=== PATIENT | male | born 1965 | race Caucasian/White ===

== ENCOUNTER 2018-11-06 09:42 | Day surgery (SDC) | payer OTHER ==
[~2018-11-06] VITALS: Ht 162.6 cm; Wt 97.6 kg
[~2018-11-06 09:42] MED LIST: CHOL10002 PO; ONE DAILY COMP1 EACH PO; PRAV20 PO; PRED10 PO; Prinivil10 MG PO
--- NOTE | 2018-11-06 10:37 | NUR ---
11/06/18 Cristian Rodriguez History, Chart, Medications and Allergies reviewed before start of procedure.MONITOR INTACT WITH CONTINUOUS PULSE OXIMETRY AND INTERMITTENT BP.3-LEAD EKG REVIEWED WITH PHYSICIAN PRIOR TO START OF PROCEDURE.O2 VIA N/C INTACT THROUGHOUT SEDATION/PROCEDURE. Patient confirms NPO status and agrees with scheduled surgery.PATIENT DETERMINED TO BE ASA APPROPRIATE FOR PROPOFOL SEDATION PRIOR TO START OF PROCEDURE BY DR. VILLANUEVA.
--- NOTE | 2018-11-06 10:37 | NUR ---
Ambulatory in Day Surgery. Patient states colon prep results clear. History, Chart, Medications and Allergies reviewed before start of procedure. Lungs clear T/O to Auscultation. Patient confirms NPO status and agrees with scheduled surgery. Pre-Op teaching done. Pt verbalizes understanding. Patient States Post-Procedure ride home has been arranged.
--- NOTE | 2018-11-06 11:43 | NUR ---
Discharge instructions reviewed with patient. Patient verbalizes understanding. Copy given to patient to take home. Patient up to Ambulate independently. Gait steady. Discharged via wheelchair to private car for ride home.
== END 2018-11-06 23:13 | disposition home or self-care (01) ==
LOC: ORSCMMR 09:42 → ORD 10:30 → ORSCMMR 10:30
PROVIDERS: Internal Medicine Gastroenterology
PROC: 0DBM8ZX Excision of Descending Colon, Via Natural or Artificial Opening Endoscopic, Diagnostic (ICD-10-PCS; principal; 2018-11-06 10:30)
PROC: 0DBH8ZX Excision of Cecum, Via Natural or Artificial Opening Endoscopic, Diagnostic (ICD-10-PCS; principal; 2018-11-06 10:30)
PROC: 0DBN8ZX Excision of Sigmoid Colon, Via Natural or Artificial Opening Endoscopic, Diagnostic (ICD-10-PCS; principal; 2018-11-06 10:30)
PROC: 0DBK8ZX Excision of Ascending Colon, Via Natural or Artificial Opening Endoscopic, Diagnostic (ICD-10-PCS; principal; 2018-11-06 10:30)
DX: Z12.11 Encounter for screening for malignant neoplasm of colon (principal); Z86.010 Personal history of colon polyps; D12.2 Benign neoplasm of ascending colon; D12.0 Benign neoplasm of cecum; K63.5 Polyp of colon; Z87.891 Personal history of nicotine dependence; J44.9 Chronic obstructive pulmonary disease, unspecified; I10 Essential (primary) hypertension; E78.00 Pure hypercholesterolemia, unspecified; Z79.899 Other long term (current) drug therapy
CPT/HCPCS: 88305; J2250; J2704; J7120

== ENCOUNTER 2019-09-14 14:27 | Inpatient (IN) | payer OTHER ==
[~2019-09-14] VITALS: Ht 160 cm; Wt 100.7 kg
[2019-09-14 16:15] LABS: BASOPHILS ABSOLUTE AUTO 0.04 K/mm3 (0.00-0.23); BASOPHILS PERCENT AUTO 0 % (0-2); EOSINOPHILS ABSOLUTE AUTO 0.01 K/mm3 (0.00-0.68); EOSINOPHILS PERCENT AUTO 0 % (0-6); Hematocrit 43.6 % (37.0-53.0); IMMATURE GRAN ABSOLUTE AUTO 0.07 K/mm3 (0.00-0.10); IMMATURE GRAN PERCENT AUTO 1 % (0-1); LYMPHOCYTES ABSOLUTE AUTO 1.14 K/mm3 (0.84-5.20); LYMPHOCYTES PERCENT AUTO 9 % (21-46); MONOCYTES PERCENT AUTO 8 % (4-13); Mean Corpuscular HGB 32.3 pg (26.0-34.0); Mean Corpuscular HGB Conc 34.4 g/dL (31.5-36.5); Mean Corpuscular Volume 94 fL (80-100); NEUTROPHILS PERCENT AUTO 82 % (41-73); Platelet Count 245 K/mm3 (150-400); RDW Coefficient Variation 12.5 % (11.7-14.2); RDW Standard Deviation 42.9 fL (35.1-46.3); Red Blood Cell Count 4.65 M/mm3 (4.30-5.90); White Blood Cell Count 12.46 K/mm3 (4.00-11.30)
[2019-09-14 16:37] LABS: Alanine Aminotransfer (ALT/SGP 33 U/L (12-78); Alk Phos 76 U/L (50-136); Anion Gap 6 mmol/L (6-16); Aspartate Aminotrans (AST/SGOT 31 U/L (12-37); Bilirubin, Total 1.2 mg/dL (0.1-1.0); Blood Urea Nitrogen 18 mg/dL (8-24); Bun/Creatinine Ratio 16.7 (12.0-20.0); CO2, Blood 26 mmol/L (21-32); Chloride, Blood 103 mmol/L (98-108); Creatinine, Blood 1.08 mg/dL (0.60-1.20); Globulin, Blood 4.2 g/dL (2.2-4.0); Glomerular Filtration Rate >60 (60-); Glucose, Blood 113 mg/dL (70-99); Potassium, Blood 4.3 mmol/L (3.5-5.5); Sodium, Blood 135 mmol/L (136-145); Total Protein, Blood 8.2 g/dL (6.4-8.2)
--- NOTE | 2019-09-14 19:25 | NUR ---
"DAY SURGERY RN | TO OR DR. BOBBY SPOKE WITH PATIENT BEFORE THIS RN SAW PATIENT IN ER. BOTH DOCTORS AND SWAGING MACHINE OPERATOR HAVE SEEN PATIENT. REPORT TO MASOUD PEDERSEN. NO ISSUES."
--- NOTE | 2019-09-14 19:53 | NUR ---
09/14/191952 Meryl Garsia PT ON SCHEDULED ANTIBIOTICS
--- NOTE | 2019-09-14 22:12 | NUR ---
RECOVERY RECEIVED FROM OR S/P APPY. AWAKE AND RESTLESS. AGITATED MOVEMENTS IN BED. MOANS FREQUENTLY. FOLLOWS SOME SIMPLE COMMANDS AND ANSWERS SOME QUESTIONS APPROPRIATELY. RA SATS STABLE. RESPIRATIONS IRREGULAR, BUT UNLABORED. BP STABLE. MONITOR SHOWS SR, 90s. ABD DRSGS X 3. LEFT DRSG HAS SMALL AMOUNT OF SANGUINOUS DRAINAGE. MUSTAPHA DRAIN TO LEFT ABDOMEN WITH SANGUINOUS DRAINAGE.
--- NOTE | 2019-09-14 22:44 | NUR ---
RECOVERY REASSESSMENT PT IS LESS RESTLESS AND MORE ORIENTED TO WHAT IS GOING ON. FOLLOWS COMMANDS. DENIES C/0 PAIN AT THIS TIME. PACU SCORE IS 10. VSS. RECEIVING RN IS UNABLE TO TAKE REPORT AT THIS TIME AND WILL CALL FOR REPORT WHEN SHE CAN.
[2019-09-15 04:12] LABS: BASOPHILS ABSOLUTE AUTO 0.01 K/mm3 (0.00-0.23); BASOPHILS PERCENT AUTO 0 % (0-2); Hematocrit 39.6 % (37.0-53.0); Hemoglobin 13.5 g/dL (13.5-17.5); LYMPHOCYTES ABSOLUTE AUTO 0.44 K/mm3 (0.84-5.20); LYMPHOCYTES PERCENT AUTO 6 % (21-46); MONOCYTES ABSOLUTE AUTO 0.42 K/mm3 (0.16-1.47); MONOCYTES PERCENT AUTO 6 % (4-13); Mean Corpuscular HGB 32.8 pg (26.0-34.0); Mean Corpuscular HGB Conc 34.1 g/dL (31.5-36.5); Mean Corpuscular Volume 96 fL (80-100); Mean Platelet Volume 8.6 fL (9.1-12.4); Platelet Count 190 K/mm3 (150-400); RDW Coefficient Variation 12.6 % (11.7-14.2); RDW Standard Deviation 44.4 fL (35.1-46.3); Red Blood Cell Count 4.12 M/mm3 (4.30-5.90); White Blood Cell Count 7.12 K/mm3 (4.00-11.30)
[2019-09-15 04:13] LABS: EOSINOPHILS PERCENT AUTO 0 % (0-6); IMMATURE GRAN ABSOLUTE AUTO 0.02 K/mm3 (0.00-0.10); IMMATURE GRAN PERCENT AUTO 0 % (0-1); NEUTROPHILS ABSOLUTE AUTO 6.23 K/mm3 (1.96-9.15); NEUTROPHILS PERCENT AUTO 88 % (41-73)
[2019-09-15 04:43] LABS: Anion Gap 6 mmol/L (6-16); Blood Urea Nitrogen 15 mg/dL (8-24); Bun/Creatinine Ratio 15.4 (12.0-20.0); CO2, Blood 26 mmol/L (21-32); Calcium, Blood 8.4 mg/dL (8.5-10.1); Chloride, Blood 106 mmol/L (98-108); Creatinine, Blood 0.98 mg/dL (0.60-1.20); Glomerular Filtration Rate >60 (60-); Glucose, Blood 170 mg/dL (70-99); Potassium, Blood 4.2 mmol/L (3.5-5.5); Sodium, Blood 138 mmol/L (136-145)
--- NOTE | 2019-09-15 04:52 | NUR ---
PATEINT ARRIVED FROM THE ICU, POST OP RECOVERY @2345. HE IS AWAKE AND INTERACTING WITH STAFF. HE HAS NO COMPLAINTS OF PAIN. HE HAS 3 GAUZE COVERED INCISIONS THE ONE ON THE LT QUADRANT, ALSO HAS A MUSTAPHA DRAIN WITH SS FLUID. PATIENT HAD A DIFFICULT TIME WITH VOIDING, HE DID HOWEVER VOID AFTER 10 MINS. hE HAS BEEN ABLE TO GET REST THIS AM. HE DID ASK FOR A PAIN PILL AND RECIEVED ONE FOR PAIN THIS MORNING. HE IS NOW INDEPENDENT IN ROOM. HE DOES HAVE RED FLUID ON HIS LEFT GAUZE. NO ACUTE CHANGES.
--- NOTE | 2019-09-15 08:06 | NUR ---
DR BOBBY HERE TO SEE PT.
--- NOTE | 2019-09-15 14:55 | NUR ---
SHIFT SUMMARY PT TOLERATING DIET. PT REPORTS PASSING VERY SMALL AMT OF GAS. "FEEL LIKE I NEED A BM". CONT TO ENCOURAGE SHORT FREQUENT WALKS, PT REPORTS WILL WALK IN HALLWAYS. PT UP IND. WITH STEADY GAIT. PT WAS GIVEN PRUNE JUICE COCKTAIL EARLIER TODAY.
--- NOTE | 2019-09-15 14:58 | NUR ---
REPORT GIVEN TO José Manuel WHO IS TAKING OVER CARE AT THIS TIME.
[2019-09-16 04:11] LABS: BASOPHILS ABSOLUTE AUTO 0.03 K/mm3 (0.00-0.23); BASOPHILS PERCENT AUTO 0 % (0-2); EOSINOPHILS PERCENT AUTO 0 % (0-6); Hematocrit 39.6 % (37.0-53.0); Hemoglobin 13.7 g/dL (13.5-17.5); IMMATURE GRAN ABSOLUTE AUTO 0.02 K/mm3 (0.00-0.10); IMMATURE GRAN PERCENT AUTO 0 % (0-1); LYMPHOCYTES ABSOLUTE AUTO 1.14 K/mm3 (0.84-5.20); LYMPHOCYTES PERCENT AUTO 13 % (21-46); MONOCYTES PERCENT AUTO 7 % (4-13); Mean Corpuscular HGB 32.4 pg (26.0-34.0); Mean Corpuscular HGB Conc 34.6 g/dL (31.5-36.5); Mean Corpuscular Volume 94 fL (80-100); Mean Platelet Volume 9.3 fL (9.1-12.4); NEUTROPHILS ABSOLUTE AUTO 6.93 K/mm3 (1.96-9.15); NEUTROPHILS PERCENT AUTO 80 % (41-73); Platelet Count 213 K/mm3 (150-400); RDW Coefficient Variation 12.8 % (11.7-14.2); Red Blood Cell Count 4.23 M/mm3 (4.30-5.90); White Blood Cell Count 8.72 K/mm3 (4.00-11.30)
--- NOTE | 2019-09-16 04:31 | NUR ---
SHIFT SUMMARY POD#2 LAP APPI WITH MUSTAPHA PLACEMENT. AAOX4. DISCOMFORT AT TOLERABLE LEVEL T/O NIGHT. NO NAUSEA/EMESIS. ABD INCISION WITH STERI STRIPS + GAUZE C/D/I. MUSTAPHA SECURE WITH SCANT DRY SS DRAINAGE AROUND INSERTION SITE, LARGE AMOUNTS OF SS DRAINAGE FROM DRAIN NOTED THIS SHIFT WITH PT REPORTING EMPTYING OWN BULB X2 THIS SHIFT WITH UNKNOWN AMOUNTS, PT STRONGLY ENCOURAGED TO NOT EMPTY OWN MUSTAPHA + CALL NURSING STAFF WHEN BULB NEEDS TO BE EMPTIED. PT ACKNOWLEDGED. PT UP TO RESTROOM INDEPENDENTLY. REPORTING INCREASED LOWER ABD "BLOATING" SINCE YESTARDAY. DENIES FLATUS OR BM POST OP. BOWEL CARE CONTINUED THIS SHIFT. ENCOURAGE AMBULATION TODAY + SIPS CLEARS TOLERATED. NEW IV PLACED THIS SHIFT FOR IVF + ABX. PT CURRENTLY RESTING IN BED WITH EYES CLOSED, NADN, WITH CALL LIGHT IN REACH.
--- NOTE | 2019-09-16 08:33 | NUR ---
DR BOBBY HERE TO SEE PT, REPORTS PT TO BE C.L. DIET. IVF CHANGED HE STATED HE WILL DECREASE RATE TO 75/HR.
--- NOTE | 2019-09-16 14:16 | NUR ---
REPORT GIVEN TO Lolita WHO IS TAKING OVER CARE AT THIS TIME.
--- NOTE | 2019-09-16 16:05 | NUR ---
SHIFT SUMMARY PT A&OX4, VSS, POD2 LAP CISCO CONNER/GAUZE CDI, MUSTAPHA W/SEROUS DRAINAGE - NEW DRESSING APPLIED TODAY TO REPLACE SATURATED DRESSING LEAKING ONTO PATIENT'S GOWN. ABD DISTENDED, DENIES FLATUS, REPORTS 2 SMALL LIQUID BMS THIS SHIFT, DENIES N&V. AMBULATING INDEPENDENTLY IN ROOM TO BRP AND IN HALLWAYS T/O SHIFT. DENIES PAIN. WILL REPORT TO ONCOMING NOC RN.
--- NOTE | 2019-09-17 04:08 | NUR ---
SHIFT SUMMARY POD#3. AAOX4. DISCOMFORT AT TOLERABLE LEVEL T/O NIGHT. DENIES NAUSEA/EMESIS. ABD INCISION WITH STERI STRIPS/GAUZE C/D/I. MUSTAPHA SECURE WITH SCANT DRY DRAINAGE NOTED AROUND INSERTION SITE, NO CHANGE THIS SHIFT WITH MODERATE AMOUNT OF SS DRAINAGE FROM MUSTAPHA THIS SHIFT. INDEPENDENT IN HALLS. GOOD PO INTAKE + OUTPUT. MULTIPLE LOOSE STOOLS YESTARDAY + THIS NOC SHIFT. PT RESTED WELL T/O NIGHT. CURRENTLY RESTING WELL IN BED AT THIS TIME, NADN, WITH CALL LIGHT IN REACH.
[2019-09-17] MEDS ORDERED: AMOCLA875 PO (09:55)
--- NOTE | 2019-09-17 10:08 | NUR ---
DC'D HOME, DC INSTRUCTIONS GIVEN, VERBALIZED UNDERSTANDING.
== END 2019-09-17 10:17 | disposition home or self-care (01) | DRG 341 ==
LOC: ER 14:27 → SURS 22:06
PROVIDERS: Nurse Practitioner; ADMIT Surgery
PROC: 0DTJ4ZZ Resection of Appendix, Percutaneous Endoscopic Approach (ICD-10-PCS; 2019-09-14)
PROC: 0WQF4ZZ Repair Abdominal Wall, Percutaneous Endoscopic Approach (ICD-10-PCS; principal; 2019-09-14 23:30)
DX: K42.9 Umbilical hernia without obstruction or gangrene (principal); K35.33 Acute appendicitis with perforation, localized peritonitis, and gangrene, with abscess; I10 Essential (primary) hypertension; E78.5 Hyperlipidemia, unspecified; G47.33 Obstructive sleep apnea (adult) (pediatric); E66.9 Obesity, unspecified; Z68.39 Body mass index [BMI] 39.0-39.9, adult; Z87.891 Personal history of nicotine dependence
CPT/HCPCS: 36415; 74177; 80048; 80053; 83690; 85025; 88304; 93005; 93010; 96365-59; 96375; 99285-25; A9270-GY; J1100; J1170; J1650; J2250; J2370; J2405; J2543; J2704; J3010; J7030; J7120; Q9967

== ENCOUNTER 2021-05-26 09:39 | Day surgery (SDC) | payer OTHER ==
[~2021-05-26] VITALS: Ht 162.6 cm; Wt 105.3 kg
[~2021-05-26 09:39] MED LIST changes: +AMOCLA875 PO
--- NOTE | 2021-05-26 12:22 | NUR ---
05/26/21 1222 Jeanne Deluca PT BP TRENDING DOWN. DR. ENRIQUE MEDICATED PT AND OPENED FLUIDS. PT HEAD INVERTED DOWN. MONITORED S/S. PT ELECTED TO PROCEED WITH PROCEEDURE. DR. ENRIQUE OK WITH PROCEEDING.
== END 2021-05-26 14:45 | disposition home or self-care (01) ==
LOC: ORSCSDS 09:39
PROVIDERS: Orthopaedic Surgery
PROC: 0RNK4ZZ Release Left Shoulder Joint, Percutaneous Endoscopic Approach (ICD-10-PCS; principal; 2021-05-26 10:45)
PROC: 0LM24ZZ Reattachment of Left Shoulder Tendon, Percutaneous Endoscopic Approach (ICD-10-PCS; principal; 2021-05-26 10:45)
DX: M75.122 Complete rotator cuff tear or rupture of left shoulder, not specified as traumatic (principal); S46.002A Unspecified injury of muscle(s) and tendon(s) of the rotator cuff of left shoulder, initial encounter; M75.22 Bicipital tendinitis, left shoulder; M75.42 Impingement syndrome of left shoulder; I10 Essential (primary) hypertension; Z87.891 Personal history of nicotine dependence; G47.33 Obstructive sleep apnea (adult) (pediatric); Z79.899 Other long term (current) drug therapy; E66.01 Morbid (severe) obesity due to excess calories; Z68.39 Body mass index [BMI] 39.0-39.9, adult
CPT/HCPCS: C1713; J0171; J0690; J1100; J2250; J2370; J2405; J2704; J3010; J7120

== ENCOUNTER 2022-09-07 09:06 | Day surgery (SDC) | payer OTHER ==
[2022-09-07] VITALS (18 sets, daily range): BP systolic 76–148; BP diastolic 41–129
[~2022-09-07] VITALS: Ht 162.6 cm; Wt 96.6 kg
--- NOTE | 2022-09-07 10:08 | NUR ---
Ambulatory in Day SurgeryLungs clear T/O to Auscultation. Patient confirms NPO status and agrees with scheduled surgery. Pre-Op teaching done. Pt verbalizes understanding. Patient States Post-Procedure ride home has been arranged with neighbor "Tennille"
--- NOTE | 2022-09-07 10:09 | NUR ---
PT WARNED RN THAT HE DOES LIKE NEEDLES. DID VERY WELL W/ IV START BUT DID GET COLD/CLAMMY AND SLIGHTLY NAUSEATED DURING INTERVENTION. HEAD OF BED FLAT, COLD CLOTH TO FOREHEAD. S/S RESOLVED AFTER INTERVENTION COMPLETED.
--- NOTE | 2022-09-07 10:32 | NUR ---
09/07/22 1032 Amna Danielle HISTORY, CHART, MEDICATIONS AND ALLERGIES REVIEWED BEFORE START OF PROCEDURE. PATIENT CONFIRMS NPO STATUS AND AGREES WITH SCHEDULED PROCEDURE. 3-LEAD EKG REVIEWED WITH PHYSICIAN PRIOR TO START OF PROCEDURE. MONITOR INTACT WITH CONTINUOUS PULSE OXIMETRY,CAPNOGRAPHY, 3-LEAD EKG, INTERMITTENT BP. SUPPLEMENTAL O2 TO BE TITRATED THROUGHOUT PROCEDURE TO MAINTAIN O2 SATURATION ABOVE 90%. PATIENT DETERMINED TO BE ASA APPROPRIATE FOR PROPOFOL SEDATION PRIOR TO START OF PROCEDURE BY DR. VILLANUEVA. MALLAMPATI CLASS 2 AIRWAY: COMPLETE VISUALIZATION OF THE UVULA.
--- NOTE | 2022-09-07 11:22 | NUR ---
Discharge instructions reviewed with patient. Patient verbalizes understanding. Copy given to patient to take home. Patient States Post-Procedure ride home has been arranged. Discharged via wheelchair to private car for ride home.
== END 2022-09-07 22:48 | disposition home or self-care (01) ==
LOC: ORSCMMR 09:06 → ORD 10:00 → ORSCMMR 10:00
PROVIDERS: Internal Medicine Gastroenterology
PROC: 0DBL8ZX Excision of Transverse Colon, Via Natural or Artificial Opening Endoscopic, Diagnostic (ICD-10-PCS; principal; 2022-09-07 10:00)
PROC: 0DBN8ZX Excision of Sigmoid Colon, Via Natural or Artificial Opening Endoscopic, Diagnostic (ICD-10-PCS; principal; 2022-09-07 10:00)
DX: Z12.11 Encounter for screening for malignant neoplasm of colon (principal); Z86.010 Personal history of colon polyps; K63.5 Polyp of colon; D12.3 Benign neoplasm of transverse colon; J44.9 Chronic obstructive pulmonary disease, unspecified; E78.00 Pure hypercholesterolemia, unspecified; I10 Essential (primary) hypertension; E66.01 Morbid (severe) obesity due to excess calories; Z68.38 Body mass index [BMI] 38.0-38.9, adult; Z87.891 Personal history of nicotine dependence; Z79.899 Other long term (current) drug therapy
CPT/HCPCS: 88305; J2704; J7120

== ENCOUNTER 2024-06-06 11:10 | Day surgery (SDC) | payer OTHER ==
[~2024-06-06] VITALS: Ht 162 cm; Wt 86.8 kg
[2024-06-06] VITALS (15 sets, daily range): BP systolic 93–144; BP diastolic 61–87
[~2024-06-06 11:10] MED LIST changes: +PROBIOTIC1 EA14 PO; +SUPER B COMPLEX PO; +[UNRECOGNIZED DRUG - REMARK] PO
[2024-06-06] MEDS ORDERED: Acetaminophen 500 MG Tab PO SCH ×2 (11:15→16:00)
[2024-06-06] MEDS ORDERED: Lactated Ringer's 1,000 ML IV SCH ×2 (11:15→13:00)
[2024-06-06] MEDS ORDERED: Tranexamic Acid 1,000 MG in NS 100 ML IV SCH (11:15)
[2024-06-06] MEDS ORDERED: OxyCODONE HCL 10 MG TABCR PO SCH (11:15)
[2024-06-06] MEDS ORDERED: CeFAZolin Sodium 2,000 MG in NS 100 ML IV SCH ×2 (11:15→22:00)
[2024-06-06] MEDS ORDERED: Chlorhexidine Mouth Care 15 ML UDC MT SCH (11:15)
[2024-06-06] MEDS ORDERED: Ropivacaine 0.5% HCl/Pf 123.125 MG,EPINEPHrine HCL 0.25 MG,Ketorolac Tromethamine 15 MG... INFIL SCH (11:15)
--- NOTE | 2024-06-06 12:46 | NUR ---
History, Chart, Medications and Allergies reviewed before start of procedure. Patient up to Ambulate independently. Gait steady. Patient confirms NPO status and agrees with scheduled surgery. Pre-Op teaching done. Pt verbalizes understanding. Patient reports completing Chlorhexadine shower X2 prior to admission to hospital. Surgical site prepped with 2% Chlorhexidine cloth wipe. Patient States Post-Procedure ride home has been arranged.
[2024-06-06] MEDS ORDERED: HYDROmorphone HCl/Pf 1MG SYR IV PRN (13:00)
[2024-06-06] MEDS ORDERED: FLU VACC TS2024-25(6MOS UP)/PF 45 MCG/0.5 ML SYRINGE IM SCH (13:00)
[2024-06-06] MEDS ORDERED: Metoclopramide HCl 5MG / ML 2ML Vial IV PRN (13:00)
[2024-06-06] MEDS ORDERED: Magnesium Hydroxide Conc 10 ML UDC PO PRN (13:00)
[2024-06-06] MEDS ORDERED: Ondansetron HCl 2 MG / ML 2ML Vial IV PRN (13:00)
[2024-06-06] MEDS ORDERED: DiphenhydrAMINE HCL 25 MG Cap PO PRN (13:05)
[2024-06-06] MEDS ORDERED: OxyCODONE HCL 5 MG TAB PO PRN ×2 (13:05→13:10)
[2024-06-06] MEDS ORDERED: Promethazine HCl 25 MG Tab PO PRN (13:05)
[2024-06-06] MEDS ORDERED: Bisacodyl 10 MG Supp PR PRN (13:05)
[2024-06-06] MEDS ORDERED: Midazolam HCl 1MG / ML 2ML Vial ONE (13:24)
[2024-06-06] MEDS ORDERED: propofoL 60 ML IV ONE (13:25)
[2024-06-06] MEDS ORDERED: Phenylephrine HCl 100 MCG/ML-NS 10MLSYR (1MG/10ML) ONE ×2 (13:57→15:15)
[2024-06-06] MEDS ORDERED: ePHEDrine Sulfate 50 MG/ML 1ML Injection ONE (13:59)
[2024-06-06] MEDS ORDERED: propofoL 50 ML IV ONE (15:15)
--- NOTE | 2024-06-06 16:58 | NUR ---
PT ARRIVED TO UNIT S/P LTKA AA0X4, ROOM AIR, DENIES SOB. POLAR KYA IN PLACE, TYRONE WRAP CDI. TOLERATING DIET NOW, DENIES NAUSEA. UNABLE TO WIGGLE TOES, CAN MOVE LEGS. PLAN IS FOR PATIENT TO WORK WITH THERAPY TOMORROW AND DISCHARGE HOME. STRAIGHT CATH IN PACU AND ENCOURAGED TO DRINK PO FLLUIDS.
[2024-06-06] MEDS ORDERED: Ketorolac Tromethamine 15mg Vial IV SCH (18:00)
--- NOTE | 2024-06-06 18:35 | NUR ---
no acute changes since arrival to floor. pt continues to deny pain and is very excited for his new knee.
[2024-06-06] MEDS ORDERED: Lactobacil 2-S.Thermo-Bifido 1 1 Cap PO SCH (21:00)
[2024-06-06] MEDS ORDERED: Docusate Sodium 100 MG Cap PO SCH (21:00)
--- NOTE | 2024-06-07 04:39 | NUR ---
SHIFT SUMMARY NAZANIN WAS ALERT AND FULLY ORIENTED ON ASSESMENT. PT ABLE TO AMBULATE WELL TO BR WITH FWW AND GB. PT VOIDING APPROPRIATELY. DRESSING TO L KNEE C/D/I. NO ACUTE EVENTS TONIGHT, NO NOTED CHANGES TO PT CONDITION. PT PAIN WELL CONTROLLED AT THIS TIME.
[2024-06-07 04:55] VITALS: BP 132/75
[2024-06-07 04:55] LABS: BASOPHILS ABSOLUTE AUTO 0.04 K/mm3 (0.00-0.23); BASOPHILS PERCENT AUTO 1 % (0-2); EOSINOPHILS ABSOLUTE AUTO 0.08 K/mm3 (0.00-0.68); EOSINOPHILS PERCENT AUTO 1 % (0-6); Hematocrit 32.6 % (37.0-53.0); Hemoglobin 11.6 g/dL (13.5-17.5); IMMATURE GRAN ABSOLUTE AUTO 0.01 K/mm3 (0.00-0.10); IMMATURE GRAN PERCENT AUTO 0 % (0-1); LYMPHOCYTES PERCENT AUTO 22 % (21-46); MONOCYTES ABSOLUTE AUTO 0.49 K/mm3 (0.16-1.47); MONOCYTES PERCENT AUTO 8 % (4-13); Mean Corpuscular HGB 32.5 pg (26.0-34.0); Mean Corpuscular HGB Conc 35.6 g/dL (31.5-36.5); Mean Corpuscular Volume 91 fL (80-100); Mean Platelet Volume 8.9 fL (9.1-12.4); NEUTROPHILS ABSOLUTE AUTO 4.22 K/mm3 (1.96-9.15); NEUTROPHILS PERCENT AUTO 68 % (41-73); Platelet Count 156 K/mm3 (150-400); RDW Standard Deviation 40.3 fL (35.1-46.3); Red Blood Cell Count 3.57 M/mm3 (4.30-5.90); White Blood Cell Count 6.24 K/mm3 (4.00-11.30)
[2024-06-07 05:23] LABS: Bun/Creatinine Ratio 16.4 (12.0-20.0); Calcium, Blood 8.3 mg/dL (8.5-10.1); Creatinine, Blood 0.85 mg/dL (0.60-1.20); Magnesium, Blood 2.3 mg/dL (1.6-2.4)
[2024-06-07 07:09] VITALS: BP 135/76
[2024-06-07] MEDS ORDERED: OXAYDO5 M1 PO (07:41)
[2024-06-07] MEDS ORDERED: ASPI81CH PO (07:41)
[2024-06-07] MEDS ORDERED: PROM25 PO (07:42)
[2024-06-07] MEDS ORDERED: Aspirin 81 MG Chew PO SCH (09:00)
[2024-06-07] MEDS ORDERED: Pravastatin Sodium 20 MG Tab PO SCH (09:00)
[2024-06-07] MEDS ORDERED: Lisinopril 10 MG Tab PO SCH (09:00)
[2024-06-07] MEDS ORDERED: Cholecalciferol 1000 Unit Tablet (=25MCG) PO SCH (09:00)
--- NOTE | 2024-06-07 12:06 | NUR ---
DISCHARGE PATIENT IV TAKEN OUT INTACT, ALL INSTRUCTIONS GIVEN AND VERBALIZED UNDERSTANDING. ALL BELONGINGS WITH PATIENT. LEAVES PRIVATE CAR.
== END 2024-06-07 12:04 | disposition home or self-care (01) ==
LOC: ORSCMMR 11:10 → ORD 14:30 → ORSCMMR 14:30 → SURS 16:51 → ORSCMMR 06-07 12:04
PROVIDERS: Orthopaedic Surgery
PROC: 0SRD0J9 Replacement of Left Knee Joint with Synthetic Substitute, Cemented, Open Approach (ICD-10-PCS; principal; 2024-06-06 14:30)
DX: M17.12 Unilateral primary osteoarthritis, left knee (principal); I10 Essential (primary) hypertension; Z79.899 Other long term (current) drug therapy; Z87.891 Personal history of nicotine dependence
CPT/HCPCS: 36415; 73560-LT; 80048; 82947; 83735; 85025; 97110; 97116; 97162; A9270; C1713; C1776; J0171; J0690; J0735; J1885; J2250; J2371; J2405; J2704; J2795; J7120